=== PATIENT | male | born 1995 | race Caucasian/White ===

== ENCOUNTER 2018-02-20 09:55 | Day surgery (SDC) | payer OTHER ==
[~2018-02-20] VITALS: Ht 175.3 cm; Wt 78.0 kg
[~2018-02-20 09:55] MED LIST: CODACEE120 PO; DOCU100 PO; IBUP200; IBUP600 PO; RXPROMSY PO; Robaxin500 MG PO; Ultram50 MG PO; Zofran Odt4 MG SL
== END 2018-02-20 23:07 | disposition home or self-care (01) ==
LOC: ORSCMMR 09:55 → ORD 11:00 → ORSCMMR 23:07
PROVIDERS: Internal Medicine Gastroenterology
PROC: 0DJD8ZZ Inspection of Lower Intestinal Tract, Via Natural or Artificial Opening Endoscopic (ICD-10-PCS; principal; 2018-02-20 11:00)
DX: R19.7 Diarrhea, unspecified (principal); R15.9 Full incontinence of feces
CPT/HCPCS: J7030

== ENCOUNTER 2018-06-27 14:57 | Emergency (ER) | payer OTHER ==
[~2018-06-27] VITALS: Ht 175.3 cm; Wt 72.6 kg
== END 2018-06-27 16:29 | disposition home or self-care (01) ==
LOC: ER 14:57
DX: S63.501A Unspecified sprain of right wrist, initial encounter (principal); W18.30XA Fall on same level, unspecified, initial encounter
CPT/HCPCS: 73110; 99283-25

== ENCOUNTER 2024-12-19 15:12 | Emergency (ER) | payer OTHER ==
[~2024-12-19] VITALS: Ht 177.8 cm; Wt 72.6 kg
[2024-12-19] MEDS ORDERED: Ibuprofen 600 MG Tab PO ONE (16:10)
[2024-12-19] MEDS ORDERED: Acetaminophen 325 MG TABLET PO ONE (16:10)
[2024-12-19 17:00] VITALS: BP 113/76
== END 2024-12-19 17:54 | disposition home or self-care (01) ==
LOC: ER 15:12
DX: M25.561 Pain in right knee (principal)
CPT/HCPCS: 73560-RT; 99283-25; A9270

== ENCOUNTER 2025-03-13 21:17 | Emergency (ER) | payer OTHER ==
[~2025-03-13] VITALS: Ht 180.3 cm; Wt 79.4 kg
[2025-03-13 21:42] VITALS: BP 119/97
[2025-03-13] MEDS ORDERED: Ketorolac Tromethamine 30mg Vial IM ONE (23:40)
== END 2025-03-14 00:03 | disposition home or self-care (01) ==
LOC: ER 21:17
DX: T21.22XA Burn of second degree of abdominal wall, initial encounter (principal); T31.0 Burns involving less than 10% of body surface
CPT/HCPCS: 99283